=== PATIENT | male | born 1970 | race Two or more races ===

== ENCOUNTER 2020-02-06 22:35 | Emergency (ER) | payer OTHER ==
[~2020-02-06] VITALS: Ht 172.7 cm; Wt 65.8 kg
[2020-02-06 22:39] VITALS: BP 101/71
[2020-02-06] MEDS ORDERED: NACL 0.9% 1,000 ML IV ONE (22:45)
--- NOTE | 2020-02-06 22:57 | NUR ---
PT TAKEN TO CT SCAN
--- NOTE | 2020-02-06 22:57 | NUR ---
PT C/O BILATERAL LEG WEAKNESS AND FEELING LIKE HE IS GOING TO FAINT. PT DENIES N/V/D, AFEBRILE, NO SOB, NO COUGH, NO PAIN. PLACED PLACED IN BED FROM EMT'S GURNEY. BED IN LOWEST POSITION AND SIDERAIL UP X 1. NKA HX - MULTIPLE MYLEOMA
[2020-02-06 23:02] LABS: BASOPHILS # (AUTO) 0.1 K/uL (0.00-0.22); BASOPHILS % (AUTO) 0.8 % (0.0-2.0); EOSINOPHILS # (AUTO) 0.2 K/uL (0-0.4); EOSINOPHILS % (AUTO) 2.9 % (0.0-4.0); HEMATOCRIT 37.4 % (36-52); HEMOGLOBIN 12.6 g/dL (12.0-18.0); LYMPHOCYTES # (AUTO) 2.7 K/uL (2.0-11.5); LYMPHOCYTES % (AUTO) 35.9 % (20.5-51.1); MEAN CORPUSCULAR HEMOGLOBIN 33 pg (27-31); MEAN CORPUSCULAR HGB CONC 34 g/dL (33-37); MEAN CORPUSCULAR VOLUME 97.2 fL (80-94); MONOCYTES # (AUTO) 0.6 K/uL (0.8-1.0); MONOCYTES % (AUTO) 7.5 % (1.7-9.3); NEUTROPHILS # (AUTO) 3.9 K/uL (1.8-7.7); NEUTROPHILS % (AUTO) 52.9 % (42.2-75.2); PLATELET COUNT (AUTO) 300 K/uL (140-450); RED BLOOD CELL COUNT(AUTO) 3.85 MIL/uL (4.20-6.10); RED CELL DISTRIBUTION WIDTH 13.1 % (11.6-13.7); WHITE BLOOD COUNT (AUTO) 7.4 K/uL (4.8-10.8)
[2020-02-06 23:16] LABS: ALBUMIN 3.5 g/dL (3.4-5.0); ANION GAP 10.8 (8-16); CARBON DIOXIDE 28.7 mmol/L (21-32); CREATININE 0.8 mg/dL (0.6-1.3); POTASSIUM 3.5 mmol/L (3.5-5.1); TOTAL BILIRUBIN 0.3 mg/dL (0.0-1.0)
--- NOTE | 2020-02-06 23:38 | NUR ---
EKG PERFORMED AT BEDSIDE. SINUS RHYTHM @ 64
--- NOTE | 2020-02-06 23:46 | NUR ---
PT PROVIDED WITH HOMELESS PACKET.
--- NOTE | 2020-02-06 23:47 | NUR ---
PT ADVISED WE NEED A UA FROM HIM, UNABLE TO PROVIDE URINE AT THIS TIME.
[2020-02-07 00:58] LABS: APPEARANCE,URINE CLEAR (CLEAR); BILIRUBIN,URINE NEGATIVE (NEGATIVE); BLOOD, URINE TRACE-I (NEGATIVE); COLOR,URINE YELLOW (YELLOW); LEUKOCYTE ESTERASE ,URINE NEGATIVE (NEGATIVE); NITRITE, URINE NEGATIVE (NEGATIVE); UGLUCOSE NEGATIVE (NEGATIVE)
[2020-02-07 01:06] LABS: BARBITURATE, URINE NEGATIVE ng/ml (NEG <=200); BENZODIAZEPINE, URINE NEGATIVE ng/mL (NEG <=200); CANNABINOID, URINE NEGATIVE ng/mL (NEG <=50); COCAINE, URINE NEGATIVE ng/mL (NEG <=300); OPIATE, URINE NEGATIVE ng/mL (NEG <=2000); PHENCYCLIDINE SCREEN,URINE NEGATIVE ng/mL (NEG <=25)
[2020-02-07 01:20] LABS: WBC,URINE 0-5 /HPF (0-5)
--- NOTE | 2020-02-07 01:28 | NUR ---
CALLED [employer] FOR BUS PASS AND BAGGED MEAL FOR PT UPON DISCHARGE.
[2020-02-07 01:44] VITALS: BP 105/73
--- NOTE | 2020-02-07 01:48 | NUR ---
Patient discharged with v/s stable. Written and verbal after care instructions given and explained. Patient verbalized understanding. Ambulatory with steady gait. All questions addressed prior to discharge. Advised to follow up with PMD.
== END 2020-02-07 01:44 | disposition home or self-care (01) ==
LOC: MED 22:35
DX: R53.1 Weakness (principal); M54.5 Low back pain; M54.2 Cervicalgia; R51 Headache
CPT/HCPCS: 36415; 70450; 71045; 72125; 72128; 72131; 80053; 80305; 81001; 85025; 93005; 96360; 96361; 99285; J7030; Q0092

== ENCOUNTER 2020-09-08 14:29 | Emergency (ER) | payer OTHER ==
[~2020-09-08] VITALS: Ht 170.2 cm; Wt 68.0 kg
[2020-09-08 14:31] VITALS: BP 145/79
--- NOTE | 2020-09-08 15:10 | NUR ---
PT AMBULATED TO BED 8.
--- NOTE | 2020-09-08 15:15 | NUR ---
49 Y/O MALE BIB SELF C/O ABD PAIN RADIATING TO BACK X LAST NIGHT. CONTINUOUS LOCALIZED PAIN 8/. PT STATES NAUSEA, DENIES VOMITING/DIARRHEA. NORMOACTIVE BOWEL SOUNDS HEARD THROUGHOUT. PT DENIES PRESENCE OF BLOOD IN STOOL/URINE. AO4, BREATHING EVEN AND UNLABORED, SKIN WARM AND DRY. BED IN LOWEST POSITION, LOCKED, X1 SIDERAIL UP. PMHX - DENIED NKA
[2020-09-08] MEDS ORDERED: NACL 0.9% 1,000 ML IV ONE (15:20)
[2020-09-08] MEDS ORDERED: ONDANSETRON 4 MG/2 ML VIAL IVP ONE (15:20)
[2020-09-08 16:46] LABS: BASOPHILS % (AUTO) 0.5 % (0.0-2.0); EOSINOPHILS # (AUTO) 0.1 K/uL (0-0.4); EOSINOPHILS % (AUTO) 1.5 % (0.0-4.0); HEMATOCRIT 39.3 % (36-52); HEMOGLOBIN 13.3 g/dL (12.0-18.0); LYMPHOCYTES % (AUTO) 27.6 % (20.5-51.1); MEAN CORPUSCULAR HEMOGLOBIN 32 pg (27-31); MEAN CORPUSCULAR HGB CONC 34 g/dL (33-37); MEAN CORPUSCULAR VOLUME 95.8 fL (80-94); MONOCYTES # (AUTO) 0.3 K/uL (0.8-1.0); MONOCYTES % (AUTO) 4.5 % (1.7-9.3); NEUTROPHILS # (AUTO) 4.7 K/uL (1.8-7.7); NEUTROPHILS % (AUTO) 65.9 % (42.2-75.2); PLATELET COUNT (AUTO) 321 K/uL (140-450); RED CELL DISTRIBUTION WIDTH 13.1 % (11.6-13.7); WHITE BLOOD COUNT (AUTO) 7.2 K/uL (4.8-10.8)
[2020-09-08 16:49] LABS: APPEARANCE,URINE CLEAR (CLEAR); BILIRUBIN,URINE NEGATIVE (NEGATIVE); BLOOD, URINE TRACE-I (NEGATIVE); COLOR,URINE YELLOW (YELLOW); LEUKOCYTE ESTERASE ,URINE NEGATIVE (NEGATIVE); NITRITE, URINE NEGATIVE (NEGATIVE); UGLUCOSE NEGATIVE (NEGATIVE)
[2020-09-08 16:57] LABS: WBC,URINE 0-5 /HPF (0-5)
[2020-09-08 16:57] LABS: ALBUMIN 3.8 g/dL (3.4-5.0); ANION GAP 10.8 (8-16); ASPARTATE AMINOTRANSFERASE 24 U/L (15-37); CARBON DIOXIDE 29.4 mmol/L (21-32); CHLORIDE 104 mmol/L (98-107); CREATININE 0.8 mg/dL (0.6-1.3); GFR ARICAN-AMERICAN 133 mL/min (>90); GLUCOSE 110 mg/dL (74-106); LIPASE 82 U/L (73-393); POTASSIUM 4.2 mmol/L (3.5-5.1); SODIUM SERUM 140 mmol/L (136-145); TOTAL BILIRUBIN 0.3 mg/dL (0.0-1.0); UREA NITROGEN, BLOOD 17 mg/dL (7-18)
[2020-09-08 17:00] LABS: BARBITURATE, URINE NEGATIVE ng/ml (NEG <=200); BENZODIAZEPINE, URINE NEGATIVE ng/mL (NEG <=200); CANNABINOID, URINE NEGATIVE ng/mL (NEG <=50); COCAINE, URINE NEGATIVE ng/mL (NEG <=300); OPIATE, URINE NEGATIVE ng/mL (NEG <=2000); PHENCYCLIDINE SCREEN,URINE NEGATIVE ng/mL (NEG <=25)
[2020-09-08] MEDS ORDERED: ONDA4TAB PO (18:21)
[2020-09-08] MEDS ORDERED: MIRABULK PO (18:21)
[2020-09-08 18:33] VITALS: BP 145/79
--- NOTE | 2020-09-08 18:33 | NUR ---
Patient discharged with v/s stable. Written and verbal after care instructions ABOUT ABDOMINAL PAIN given and explained. Patient alert, oriented and verbalized understanding of instructions. Ambulatory with steady gait. All questions addressed prior to discharge. ID band removed. Patient advised to follow up with PMD. Rx of MIRALAX AND ZOFRAN given. Patient educated on indication of medication including possible reaction and side effects. Opportunity to ask questions provided and answered.
== END 2020-09-08 18:33 | disposition home or self-care (01) ==
LOC: MED 14:29
DX: K86.1 Other chronic pancreatitis (principal); F10.129 Alcohol abuse with intoxication, unspecified; Y90.9 Presence of alcohol in blood, level not specified
CPT/HCPCS: 36415; 74176; 80053; 80305; 81001; 83690; 84484; 85025; 87086; 96361; 96374; 99284; G0482; J2405; J7030

== ENCOUNTER 2020-09-26 07:34 | Emergency (ER) | payer OTHER ==
[~2020-09-26] VITALS: Ht 172.7 cm; Wt 68.0 kg
[2020-09-26 07:34] VITALS: BP 115/76
[~2020-09-26 07:34] MED LIST: MIRABULK PO; ONDA4TAB PO
--- NOTE | 2020-09-26 07:50 | NUR ---
49 Y/O M BIB AMB HOMELESS PICKED UP FROM [facility], PATIENT PRESENTS TO ED WITH L LEG PAIN THAT STARTED THIS MORNING WHEN HE WAS WALKING. PT STATES HE HAD NO INJURY BEFORE THIS AND THIS HAD NOT HAPPENED BEFORE. UPON INSPECTION, PT IS ABLE TO FLEX AND EXTEND EXTREMITY, NO SWELLING, REDNESS OR OPEN WOUNDS NEAR SITE OF PAIN. DENIES N/V/D; SKIN IS PINK/WARM/DRY; AAOX4 WITH EVEN AND STEADY GAIT; LUNGS CLEAR BL; HR EVEN AND REGULAR; PT DENIES ANY FEVER, CP, SOB, OR COUGH AT THIS TIME; PATIENT STATES PAIN OF 8/10 AT THIS TIME; VSS; PATIENT POSITIONED FOR COMFORT; HOB ELEVATED; BEDRAILS UP X2; BED DOWN. ER MD MADE AWARE OF PT STATUS. PMH: PANCREATITIS NKA MED: NONE
--- NOTE | 2020-09-26 07:53 | NUR ---
Patient being evaluated by Dr. Barba at bedside.
[2020-09-26] MEDS ORDERED: ACETAMINOPHEN EXTRA STRENGTH 500 MG TAB PO ONE (08:00)
--- NOTE | 2020-09-26 08:03 | NUR ---
X RAY AT BEDSIDE.
[2020-09-26] MEDS ORDERED: THIAMINE 200 MG/2 ML VIAL IM ONE (08:15)
[2020-09-26] MEDS ORDERED: ACET-9882 PO (09:19)
[2020-09-26] MEDS ORDERED: GABA100C PO (09:19)
--- NOTE | 2020-09-26 09:29 | NUR ---
Patient discharged with v/s stable. Written and verbal after care instructions given and explained. Patient alert, oriented and verbalized understanding of instructions. Ambulatory with steady gait. All questions addressed prior to discharge. ID band removed. Patient advised to follow up with PMD. Rx of ACETAMINOPHEN, GABAPENTIN given. Patient educated on indication of medication including possible reaction and side effects. Opportunity to ask questions provided and answered.
[2020-09-26 09:30] VITALS: BP 119/78
== END 2020-09-26 09:29 | disposition home or self-care (01) ==
LOC: MED 07:34
DX: G62.9 Polyneuropathy, unspecified (principal); F17.290 Nicotine dependence, other tobacco product, uncomplicated; Z79.899 Other long term (current) drug therapy
CPT/HCPCS: 73590; 73630; 96372; 99284; J3411

== ENCOUNTER 2021-01-26 14:05 | Emergency (ER) | payer OTHER ==
[~2021-01-26] VITALS: Ht 172.7 cm; Wt 59.0 kg
[~2021-01-26 14:05] MED LIST changes: +ACET-9882 PO; +GABA100C PO
[2021-01-26 14:16] VITALS: BP 103/63
--- NOTE | 2021-01-26 14:36 | NUR ---
Dr. Gupta is evaluating patient at bedside.
[2021-01-26] MEDS ORDERED: KETOROLAC 60 MG/2 ML VIAL IM ONE (14:40)
[2021-01-26] MEDS ORDERED: ONDANSETRON 4 MG ODT PO ONE (14:40)
[2021-01-26] MEDS ORDERED: CIPR500T4 PO (14:44)
[2021-01-26] MEDS ORDERED: ONDA8TAB87 PO (14:44)
[2021-01-26] MEDS ORDERED: IBUP-2213 PO (14:44)
--- NOTE | 2021-01-26 14:49 | NUR ---
50 YO MALE BIBS C/O ABDOMINAL PAIN X4 DAYS, NAUSEA, DIARRHEA. PAIN 9/10 TO LOWER ABDOMEN, PT STATES PAIN COMES AND GOES. PT STATES DIARRHEA HAS BEEN CONSTANT, AND IS NORMAL IN COLOR. ABDOMEN IS FLAT, HARD TO RIGHT LOWER SIDE, WITH TENDERNESS THROUGHOUT LOWER ABDOMEN. BS HYPERACTIVE X4 QUADRANTS. PT IS A&OX4, RR EVEN AND UNLABORED. PMH: NONE NKDA
[2021-01-26 15:35] VITALS: BP 103/63
--- NOTE | 2021-01-26 15:35 | NUR ---
Patient given written and verbal discharge instructions and verbalizes understanding. Given copies of tests performed during visit. Patient is awake, alert and oriented. Ambulatory with steady gait. Refuses offer of penitentiary placement. Given list of available shelters in surrounding areas. BUS PASS AND PACK OF LUNCH GIVEN TO PT. PT SIGNED HOMELESS WAIVER.
[2021-01-27] MEDS ORDERED: METR500T1 PO ×2 (19:45→19:51)
[2021-01-27] MEDS ORDERED: CIPR500T4 PO ×2 (19:45→19:51)
[2021-01-27] MEDS ORDERED: ACET-10509 PO ×2 (19:45→19:51)
== END 2021-01-26 15:35 | disposition home or self-care (01) ==
LOC: MED 14:05
DX: R10.32 Left lower quadrant pain (principal); R11.2 Nausea with vomiting, unspecified; R19.7 Diarrhea, unspecified; Z79.899 Other long term (current) drug therapy; Z98.890 Other specified postprocedural states
CPT/HCPCS: 96372; 99283; J1885; Q0162

== ENCOUNTER 2021-01-27 18:38 | Emergency (ER) | payer OTHER ==
[~2021-01-27] VITALS: Ht 172.7 cm; Wt 63.5 kg
[~2021-01-27 18:38] MED LIST changes: +CIPR500T4 PO; +IBUP-2213 PO; +ONDA8TAB87 PO
--- NOTE | 2021-01-27 18:42 | NUR ---
PT PLACED INTO ROOM 7
[2021-01-27 18:43] VITALS: BP 113/75
--- NOTE | 2021-01-27 18:47 | NUR ---
50 MALE BIBA DUE TO ABDOMINAL PAIN SINCE THURSDAY. 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 PMH: DENIES NKA
--- NOTE | 2021-01-27 18:58 | NUR ---
PT AMBULATED TO RESTROOM. GAIT STEADY
--- NOTE | 2021-01-27 19:16 | NUR ---
REPORT RECEIVED FROM IRIS PIMENTEL FOR CONTINUATION OF PATIENT CARE AT THIS TIME.
--- NOTE | 2021-01-27 19:16 | NUR ---
[place] in [facility] - 01/27/21 at 1919 by AYDIN REPORT RECEIVED FROM IRIS PIMENTEL FOR CONTINUATION OF PATIENT CARE AT THIS TIME.
--- NOTE | 2021-01-27 19:16 | NUR ---
Pt report given to IRIS GROVE. Transfer of care at this time.
--- NOTE | 2021-01-27 19:36 | NUR ---
PATIENT C/O ABDOMINAL PAIN 9/10 LLQ, DENIES FEVER, N/V/D. ERMD AWARE, PATIENT OK FOR DISCHARGE AT THIS TIME. PATIENT LAYING IN BED LOCKED IN LOWEST POSITION X1 SIDE RAIL UP, BREATHING EVEN AND UNLABORED. VSS. NAD NOTED, WILL CONTINUE TO MONITOR. PMH: CHRONIC PANCREATITIS NKA
--- NOTE | 2021-01-27 19:36 | NUR ---
Note darrenone in EDM - 01/27/21 at 2016 by [employer] PATIENT C/O ABDOMINAL PAIN 02/22 LLQ, DENIES FEVER, N/V/D. ERMD AWARE, PATIENT OK FOR DISCHARGE AT THIS TIME. PATIENT LAYING IN BED LOCKED IN LOWEST POSITION X1 SIDE RAIL UP, BREATHING EVEN AND UNLABORED. VSS. NAD NOTED, WILL CONTINUE TO MONITOR.
[2021-01-27] MEDS ORDERED: METR500T1 PO ×2 (19:45→19:51)
[2021-01-27] MEDS ORDERED: CIPR500T4 PO ×2 (19:45→19:51)
[2021-01-27] MEDS ORDERED: ACET-10509 PO ×2 (19:45→19:51)
--- NOTE | 2021-01-27 20:00 | NUR ---
NOVEL COVID SAMPLE COLLECTED FROM PATIENT NARES, WALKED TO LAB AND HANDED TO COLLABORATING SUPERVISING PHYSICIAN.
--- NOTE | 2021-01-27 20:05 | NUR ---
PROVIDED PATIENT WITH FOOD. PATIENT REFUSED HOMELESS RESOURCE PACKET.
--- NOTE | 2021-01-27 20:10 | NUR ---
CONTACTED [employer] FOR PATIENT BUS PASS. PATIENT TO WAIT IN LOBBY FOR BUS PASS.
[2021-01-27 20:12] VITALS: BP 107/67
--- NOTE | 2021-01-27 20:12 | NUR ---
Patient discharged with v/s stable. Written and verbal after care instructions given and explained. Patient alert, oriented and verbalized understanding of instructions. Ambulatory with steady gait. All questions addressed prior to discharge. ID band removed. Patient advised to follow up with PMD. Rx of ACETAMINOPHEN, CIPRO, FLAGYL given. Patient educated on indication of medication including possible reaction and side effects. Opportunity to ask questions provided and answered.
== END 2021-01-27 20:12 | disposition home or self-care (01) ==
LOC: MED 18:38
DX: R10.32 Left lower quadrant pain (principal); Z20.822 Contact with and (suspected) exposure to COVID-19; R19.7 Diarrhea, unspecified; R11.2 Nausea with vomiting, unspecified; Z76.0 Encounter for issue of repeat prescription
CPT/HCPCS: 99283; U0003

== ENCOUNTER 2021-05-28 18:50 | Emergency (ER) | payer OTHER ==
[~2021-05-28] VITALS: Ht 172.7 cm; Wt 63.5 kg
[~2021-05-28 18:50] MED LIST changes: +ACET-10509 PO; +METR500T1 PO
[2021-05-28 18:54] VITALS: BP 108/66
--- NOTE | 2021-05-28 18:54 | NUR ---
BIBA TAKEN TO BED #7
--- NOTE | 2021-05-28 19:07 | NUR ---
50 Y/M BIBA C/O LOWER ABD PAIN FOR 4 DAYS 01/22. N/D X 4 DAYS. PT HAS PANCREATITIS AND THINKS IT IS FLARED UP. NKA.
--- NOTE | 2021-05-28 19:13 | NUR ---
GAVE REPORT TO JESSIE SIMMONS.
[2021-05-28 19:35] LABS: BASOPHILS % (AUTO) 0.3 % (0.0-2.0); EOSINOPHILS # (AUTO) 0.2 K/uL (0-0.4); EOSINOPHILS % (AUTO) 2.3 % (0.0-4.0); HEMATOCRIT 38.7 % (36-52); HEMOGLOBIN 13.1 g/dL (12.0-18.0); LYMPHOCYTES # (AUTO) 1.7 K/uL (2.0-11.5); LYMPHOCYTES % (AUTO) 20.6 % (20.5-51.1); MEAN CORPUSCULAR HEMOGLOBIN 33 pg (27-31); MEAN CORPUSCULAR HGB CONC 34 g/dL (33-37); MEAN CORPUSCULAR VOLUME 97.3 fL (80-94); MONOCYTES # (AUTO) 0.5 K/uL (0.8-1.0); MONOCYTES % (AUTO) 5.4 % (1.7-9.3); NEUTROPHILS % (AUTO) 71.4 % (42.2-75.2); PLATELET COUNT (AUTO) 337 K/uL (140-450); RED BLOOD CELL COUNT(AUTO) 3.97 MIL/uL (4.20-6.10); RED CELL DISTRIBUTION WIDTH 12.9 % (11.6-13.7); WHITE BLOOD COUNT (AUTO) 8.3 K/uL (4.8-10.8)
[2021-05-28 20:00] LABS: ALBUMIN 3.4 g/dL (3.4-5.0); ANION GAP 8.1 (8-16); CARBON DIOXIDE 33.2 mmol/L (21-32); CREATININE 0.6 mg/dL (0.6-1.3); POTASSIUM 4.3 mmol/L (3.5-5.1); TOTAL BILIRUBIN 0.2 mg/dL (0.0-1.0)
[2021-05-28] MEDS ORDERED: IMO2 PO (20:40)
[2021-05-28 21:09] VITALS: BP 132/72
--- NOTE | 2021-05-28 21:15 | NUR ---
PATIENT DC HOME STABLE VITALS SIGNS IN NORMAL LIMITS ALL DC INSTRUCTION GAVED AND EXPLAINED
== END 2021-05-28 21:05 | disposition home or self-care (01) ==
LOC: MED 18:50
DX: R19.7 Diarrhea, unspecified (principal)
CPT/HCPCS: 36415; 80053; 83690; 85025; 99283